=== PATIENT | female | born 1990 | race Caucasian/White ===

== ENCOUNTER 2020-06-14 22:03 | Emergency (ER) | payer OTHER ==
[~2020-06-14] VITALS: Ht 162.6 cm; Wt 59.0 kg
[~2020-06-14 22:03] MED LIST: APAP500 PO; BIRTH CONTROL PILL; BISACODYL SUPP10 MG RE; CIPRO500 MG PO; DERMOPLAST SPRA56 ML; DIPHENHYDRAMINE50 MG; FLOMAX0.4 MG PO; HYDROCORTISONE30 G9; IBUPROFEN 600600 M1 PO; IBUPROFEN 800800 M1 PO; Integra PO; LANOLIN56 GM; NORCO 5-325 TA1 EACH PO; ONDANSETRON HCL4 M2 PO; PRENATAL; TORADOL 10 MG T10 MG PO; TUCKS MEDICATE1 EAC1
[2020-06-15 01:06] VITALS: BP 124/76
== END 2020-06-15 01:13 | disposition home or self-care (01) ==
LOC: ER 22:03
DX: S00.531A Contusion of lip, initial encounter (principal); M25.552 Pain in left hip; V49.9XXA Car occupant (driver) (passenger) injured in unspecified traffic accident, initial encounter; Y93.89 Activity, other specified; Y92.89 Other specified places as the place of occurrence of the external cause; Y99.8 Other external cause status

== ENCOUNTER 2021-10-19 07:47 | Emergency (ER) | payer OTHER ==
[~2021-10-19] VITALS: Ht 162.6 cm; Wt 56.7 kg
[2021-10-19 08:22] LABS: URINE BILIRUBIN NEGATIVE (Negative); URINE BLOOD NEGATIVE (Negative); URINE CLARITY CLEAR; URINE COLOR YELLOW; URINE GLUCOSE-RANDOM* NEGATIVE (Negative); URINE KETONES NEGATIVE (Negative); URINE LEUKOCYTES-REFLEX NEGATIVE (Negative); URINE NITRITE-REFLEX NEGATIVE (Negative); URINE PROTEIN (DIPSTICK) NEGATIVE (Negative); URINE SPECIFIC GRAVITY <= 1.005 (1.005-1.035); URINE UROBILINOGEN 0.2 E.U./dl (0.2-1.0)
[2021-10-19 10:06] LABS: ABSOLUTE NEUTROPHILS 7.3 thou/uL (1.4-8.2); BASOPHILS 0.7 % (0.0-2.0); EOSINOPHILS 0.6 % (0.0-3.0); HEMATOCRIT 38.9 % (37.0-47.0); LYMPHOCYTES 17.4 % (24.0-44.0); MCH 33.2 pg (26.0-34.0); MCHC 33.4 g/dL (28.0-37.0); MCV 99.5 fL (80.0-100.0); MONOCYTES 4.6 % (1.0-8.0); PLATELET COUNT 268 thou/uL (150-400); POLYS 76.7 % (36.0-66.0); RBC 3.92 mil/uL (4.20-5.00); RDW 13.3 % (10.5-14.5); WBC 9.6 thou/uL (4.0-11.0)
[2021-10-19 10:16] LABS: CREATININE 0.8 mg/dL (0.6-1.0); POTASSIUM 3.9 mmol/L (3.5-5.1)
[2021-10-19 11:45] VITALS: BP 148/89
== END 2021-10-19 11:45 | disposition home or self-care (01) ==
LOC: ER 07:47
PROVIDERS: Student in an Organized Health Care Education/Training Program
DX: O26.891 Other specified pregnancy related conditions, first trimester (principal); M54.59 Other low back pain; Z3A.01 Less than 8 weeks gestation of pregnancy